=== PATIENT | male | born 1940 | race Caucasian/White ===

== ENCOUNTER 2019-03-31 08:48 | Day surgery (SDC) | payer BC ==
[2019-03-26 11:27] LABS: BASOPHILS % (AUTO) 0.5 % (0-1); EOSINOPHILS # (AUTO) 0.1 X10'3 (0-0.9); EOSINOPHILS % (AUTO) 1.2 % (0-6); HEMATOCRIT 47.8 % (42.0-52.0); HEMOGLOBIN 16.3 g/dl (14.0-17.9); LYMPHOCYTES # (AUTO) 1.3 X10'3 (1.1-4.8); LYMPHOCYTES % (AUTO) 19.8 % (21-51); MEAN CORPUSCULAR HEMOGLOBIN 31.2 PG (27.0-31.0); MEAN CORPUSCULAR HGB CONC 34.1 g/dL (33.0-36.5); MEAN CORPUSCULAR VOLUME 91.7 FL (78-98); MEAN PLATELET VOLUME 8.5 FL (7.4-10.4); MONOCYTES # (AUTO) 0.6 X10'3 (0-0.9); MONOCYTES % (AUTO) 8.8 % (2-12); NEUTROPHILS # (AUTO) 4.7 X10'3 (1.8-7.7); NEUTROPHILS % (AUTO) 69.7 % (42-75); PLATELET COUNT 299 X10'3 (140-440); RED BLOOD COUNT 5.21 X10'6 (4.70-6.10); RED CELL DISTRIBUTION WIDTH 13.6 % (11.5-14.5); WHITE BLOOD COUNT 6.7 X10'3 (4.5-11.0)
[2019-03-26 11:36] LABS: PARTIAL THROMBOPLASTIN TIME 26 SECONDS (22-32)
[2019-03-26 11:45] LABS: ALANINE AMINOTRANSFERASE 26 U/L (12-78); ALBUMIN 3.6 G/DL (3.4-5.0); ALBUMIN/GLOBULIN RATIO 0.9 (1.1-1.5); ALKALINE PHOSPHATASE 95 IU/L (46-116); ANION GAP 9 (8-16); ASPARTATE AMINO TRANSFERASE 15 U/L (10-37); BILIRUBIN,TOTAL 0.7 MG/DL (0.1-1.0); BLOOD UREA NITROGEN 9 MG/DL (7-18); BUN/CREATININE RATIO 10.7 (5.4-32.0); CALCIUM 8.9 MG/DL (8.5-10.1); CHLORIDE 101 MMOL/L (99-107); CREATININE 0.84 MG/DL (0.60-1.10); GLUCOSE 101 MG/DL (70-104); POTASSIUM 3.4 MMOL/L (3.5-5.1); SODIUM 141 MMOL/L (135-145); TOTAL CARBON DIOXIDE 30.9 MMOL/L (24-32); TOTAL PROTEIN 7.5 G/DL (6.4-8.2); eGFR 88 ML/MIN
[2019-03-31] VITALS (11 sets, daily range): BP systolic 118–149; BP diastolic 50–81
[~2019-03-31] VITALS: Ht 190.5 cm; Wt 77.5 kg
[2019-03-31] MEDS ORDERED: ATOR10TA87 PO (09:15)
[2019-03-31] MEDS ORDERED: ASPI-771 PO (09:15)
[2019-03-31] MEDS ORDERED: IBUP200C5 PO (09:15)
[2019-03-31] MEDS ORDERED: HYDR25TA4 PO (09:15)
[2019-03-31] MEDS ORDERED: LOSA25TA96 PO (09:15)
[2019-03-31] MEDS ORDERED: normal saline 1,000 ML IV SCH (09:20)
[2019-03-31] MEDS ORDERED: diphenhydrAMINE 25mg capsule PO PRN (09:20)
[2019-03-31] MEDS ORDERED: LORazepam 0.5 MG tablet PO PRN (09:20)
[2019-03-31] MEDS ORDERED: iohexol 350MG/ML 100ml bottle IV ONE (12:54)
[2019-03-31] MEDS ORDERED: LIDOcaine 1% (10mg/ml)w/preservative injection 20ml MDV ONE (12:54)
[2019-03-31] MEDS ORDERED: iohexol 350 MG/ML 50ML vial IV ONE (12:54)
[2019-03-31] MEDS ORDERED: fentaNYL/PF 50MCG/1 ML 2ML syringe ONE ×2 (13:18→13:36)
[2019-03-31] MEDS ORDERED: midazolam 2 mg/2 ml injection ONE (13:18)
[2019-03-31] MEDS ORDERED: ondansetron/PF 4mg/2ml inj IV PRN (14:20)
[2019-03-31] MEDS ORDERED: HYDROcodone/acetaminophen 5mg/325mg tablet PO PRN (14:20)
[2019-03-31] MEDS ORDERED: HYDROcodone/acetaminophen 10/325mg tab PO PRN (14:25)
[2019-03-31] MEDS ORDERED: OXAZEpam 15mg capsule PO PRN (14:25)
[2019-03-31] MEDS ORDERED: proCHLORperazine 10 MG/2 ml inj IV PRN (14:25)
[2019-03-31] MEDS ORDERED: nitroGLYCERIN 0.4mg SUBLingual tab SL PRN (14:40)
== END 2019-03-31 19:40 | disposition home or self-care (01) ==
LOC: SSTAY O 08:48
PROVIDERS: ATTEND Internal Medicine Cardiovascular Disease
DX: R94.39 Abnormal result of other cardiovascular function study (principal); I25.10 Atherosclerotic heart disease of native coronary artery without angina pectoris; I10 Essential (primary) hypertension; J44.9 Chronic obstructive pulmonary disease, unspecified; E78.5 Hyperlipidemia, unspecified; F17.210 Nicotine dependence, cigarettes, uncomplicated; Z79.899 Other long term (current) drug therapy; Z79.82 Long term (current) use of aspirin; Z79.01 Long term (current) use of anticoagulants
CPT/HCPCS: 36415; 71046; 71250; 80053; 85025; 85610; 85730; 93005; 93458; 99152; C1769; J1644; J2001; J2250; J3010; J7030; Q0163; Q9967; A4620; A6258; C1760

== ENCOUNTER 2019-04-15 05:35 | Inpatient (IN) | payer BC ==
[2019-04-14 16:53] LABS: BASOPHILS % (AUTO) 0.5 % (0-1); EOSINOPHILS # (AUTO) 0.2 X10'3 (0-0.9); EOSINOPHILS % (AUTO) 2.3 % (0-6); LYMPHOCYTES # (AUTO) 1.8 X10'3 (1.1-4.8); LYMPHOCYTES % (AUTO) 20.8 % (21-51); MEAN CORPUSCULAR HEMOGLOBIN 31.4 PG (27.0-31.0); MEAN CORPUSCULAR HGB CONC 33.9 g/dL (33.0-36.5); MEAN CORPUSCULAR VOLUME 92.4 FL (78-98); MEAN PLATELET VOLUME 8.9 FL (7.4-10.4); MONOCYTES # (AUTO) 0.7 X10'3 (0-0.9); MONOCYTES % (AUTO) 8.4 % (2-12); NEUTROPHILS # (AUTO) 5.7 X10'3 (1.8-7.7); PRE OP HEMATOCRIT 44.2 % (42.0-52.0); PRE OP PLATELET COUNT 290 X10'3 (140-440); RED BLOOD COUNT 4.78 X10'6 (4.70-6.10); RED CELL DISTRIBUTION WIDTH 13.7 % (11.5-14.5)
[2019-04-14 16:54] LABS: PRE OP PROTIME 10.1 SECONDS (9.0-12.0)
[2019-04-14 16:56] LABS: ALBUMIN 3.5 G/DL (3.4-5.0); ALBUMIN/GLOBULIN RATIO 0.9 (1.1-1.5); ALKALINE PHOSPHATASE 97 IU/L (46-116); BLOOD UREA NITROGEN 15 MG/DL (7-18); BUN/CREATININE RATIO 13.8 (5.4-32.0); CALCIUM 8.5 MG/DL (8.5-10.1); CHLORIDE 104 MMOL/L (99-107); CREATININE 1.09 MG/DL (0.60-1.10); PRE OP ALT 25 U/L (30-65); PRE OP ANION GAP 8 (8-16); PRE OP AST 10 U/L (10-37); PRE OP BILIRUB, TOTAL 0.5 MG/DL (0.0-1.0); PRE OP GLUCOSE 126 MG/DL (70-104); PRE OP SODIUM 142 MMOL/L (135-145); TOTAL CARBON DIOXIDE 30.1 MMOL/L (24-32); TOTAL PROTEIN 7.4 G/DL (6.4-8.2); eGFR 65 ML/MIN
[2019-04-14 16:58] LABS: CLARITY,URINE CLEAR (Clear); COLOR,URINE YELLOW (Yellow); GLUCOSE, URINE NEGATIVE (Neg); KETONES,URINE NEGATIVE (Neg); LEUKOCYTE ESTERASE ,URINE NEGATIVE (Neg); NITRITES, URINE NEGATIVE (Neg); OCCULT BLOOD,URINE NEGATIVE (Neg); PH,URINE 6.5 (4.8-8.0); PROTEIN,URINE NEGATIVE (Neg)
[2019-04-14 17:00] LABS: PRE OP POTASSIUM 3.2 MMOL/L (3.4-5.1)
[2019-04-14 17:01] LABS: UA COLLECTION TYPE VOIDED
[~2019-04-15] VITALS: Ht 190.5 cm; Wt 77.1 kg
[2019-04-15] VITALS (23 sets, daily range): BP systolic 84–150; BP diastolic 39–91
[~2019-04-15 05:35] MED LIST: ASPI-771 PO; ATOR10TA87 PO; HYDR25TA4 PO; LOSA25TA96 PO; albuterol 2.5 MG/3 ML nebule NEB ONE; albuterol 2.5 MG/3 ML nebule ONE; cefazolin/dext.iso 2gm/50ml 50 ML IV ONE; famotidine 20mg tablet PO ONE; ringers solution, lacted 1,000 ML IV SCH
[2019-04-15] MEDS ORDERED: LIDOcaine 1% (10mg/ml) 2ml vial ONE (06:00)
[2019-04-15 07:01] LABS: ISTAT CREATININE 0.9 mg/dL (0.8-1.3); ISTAT HGB 15.3 g/dl (14.0-18.0); ISTAT IONIZED CALCIUM 1.16 mmol/L (1.03-1.32); ISTAT K 3.8 mmol/L (3.5-5.1); POC BUN/CREATININE RATIO 15.6 (5.4-32.0)
[2019-04-15] MEDS ORDERED: fentaNYL /PF 50mcg/ml 5ml ampule ONE (07:33)
[2019-04-15] MEDS ORDERED: propofol inj 20 ML IV ONE (07:33)
[2019-04-15] MEDS ORDERED: midazolam 2 mg/2 ml injection ONE (07:33)
[2019-04-15] MEDS ORDERED: LIDOcaine 2% (20mg/ml) 5ml vial ONE (07:33)
[2019-04-15] MEDS ORDERED: BUPIVAcaine/PF 2.5 mg/ml (0.25%) 30ml vial ONE (07:37)
[2019-04-15] MEDS ORDERED: sevoflurane 250ml liquid IH ONE (07:40)
[2019-04-15] MEDS ORDERED: neostigmine methylsulfate 1 MG/ML 10ml vial ONE (07:40)
[2019-04-15] MEDS ORDERED: ondansetron/PF 4mg/2ml inj ONE (07:40)
[2019-04-15] MEDS ORDERED: glycopyrrolate 0.2mg/ml inj ONE (07:40)
[2019-04-15] MEDS ORDERED: ePHEDrine 50MG/ML INJ. ONE (10:17)
[2019-04-15] MEDS ORDERED: pancuronium br 1mg/ml inj IV ONE (10:17)
[2019-04-15] MEDS ORDERED: dexamethasone sod phosphate 4mg/ml inj. ONE (10:17)
[2019-04-15] MEDS ORDERED: rocuronium 10mg/ml inj IV ONE (10:18)
[2019-04-15] MEDS ORDERED: SODIUM CHLORIDE EPI SCH ×3 (10:40)
[2019-04-15] MEDS ORDERED: MORPHINE EPI SCH ×3 (10:40)
[2019-04-15] MEDS ORDERED: BUPIVACAINE EPI SCH ×3 (10:40)
[2019-04-15] MEDS ORDERED: [UNRECOGNIZED DRUG - OTHER] EPI SCH ×3 (10:40)
[2019-04-15] MEDS ORDERED: morphine/PF injection 8 MG, BUPIVAcaine 0.5% inj/PF 100 MG in normal saline 100ml IV so... EPI SCH (10:59)
[2019-04-15] MEDS: morphine/PF injection 8 MG, BUPIVAcaine 0.5% inj/PF 100 MG in normal saline 100ml IV so... EPI SCH ×3 (11:36→16:53)
[2019-04-15] MEDS ORDERED: naloxone 0.4 mg/ml inj IV PRN (11:40)
[2019-04-15] MEDS ORDERED: metoclopramide 5 mg/ml inj IV PRN (11:40)
[2019-04-15] MEDS ORDERED: ondansetron/PF 4mg/2ml inj IV PRN (11:40)
[2019-04-15] MEDS ORDERED: CADD PCA waste documentation MC PRN (11:40)
[2019-04-15] MEDS ORDERED: morphine 4 MG/ML inj SYRINge IV PRN (11:40)
[2019-04-15] MEDS ORDERED: magnesium hydroxide 30ml (MOM) UD suspension PO PRN (11:40)
[2019-04-15 12:41] LABS: ABG BASE EXCESS -2.2 mmol/L (-2.0-3.0); ABG OXYGEN SATURATION 99.1 % (95-98); ABG PCO2 (T) 46.8 mmHg (35.0-45.0); ABG PH (T) 7.328 (7.350-7.450); ABG PO2 (T) 186.6 mmHg (83-108); FCOHb 0.6 % (0.5-1.5); FLOW 10 L/min; FMetHb 0.1 % (0.3-1.12); FO2Hb 98.4 % (94-100); RESPIRATORY RATE (OBSERVED) 18 b/min; TOTAL HEMOGLOBIN 13.6 G/dl (14.0-17.9)
--- NOTE | 2019-04-15 12:50 | NUR ---
Report called to receiving nurse. Transferred via BED Belongings . Special Issues communicated to receiving nurse.AWAKE AND ORIENTED. VITALS STABLE. DRESSING DI. STATES PAIN IMPROVING. TO CICU RM 2009 AT THIS TIME.
[2019-04-15] MEDS ORDERED: ceFAZolin inj. 1,000 MG in dextrose 5%-water 50ml 50 ML IV SCH (16:00)
[2019-04-15] MEDS ORDERED: DEXTROSE IV SCH (16:00)
[2019-04-15] MEDS ORDERED: [UNRECOGNIZED DRUG - OTHER] IV SCH (16:00)
[2019-04-15] MEDS ORDERED: CEFAZOLIN IV SCH (16:00)
[2019-04-15] MEDS: ceFAZolin 1GM/D5W- ADD-VANTAGE 50 ML IV SCH (17:13)
[2019-04-15] MEDS: potassium Cl 20mEq in D5-NS 1,000 ML IV SCH (20:52)
[2019-04-15] MEDS: gabapentin 300mg capsule PO SCH (20:53)
[2019-04-16] VITALS (23 sets, daily range): BP systolic 77–133; BP diastolic 45–65
[2019-04-16] MEDS: potassium Cl 20mEq in D5-NS 1,000 ML IV SCH ×2 (00:06→10:11)
[2019-04-16] MEDS: ceFAZolin 1GM/D5W- ADD-VANTAGE 50 ML IV SCH (00:41)
[2019-04-16] MEDS: morphine/PF injection 8 MG, BUPIVAcaine 0.5% inj/PF 100 MG in normal saline 100ml IV so... EPI SCH (00:45)
[2019-04-16 04:51] LABS: BASOPHILS % (AUTO) 0.1 % (0-1); EOSINOPHILS % (AUTO) 0.1 % (0-6); HEMATOCRIT 37.1 % (42.0-52.0); HEMOGLOBIN 12.7 g/dl (14.0-17.9); LYMPHOCYTES # (AUTO) 1.1 X10'3 (1.1-4.8); MEAN CORPUSCULAR HEMOGLOBIN 31.6 PG (27.0-31.0); MEAN CORPUSCULAR HGB CONC 34.2 g/dL (33.0-36.5); MEAN CORPUSCULAR VOLUME 92.3 FL (78-98); MONOCYTES # (AUTO) 1.1 X10'3 (0-0.9); MONOCYTES % (AUTO) 10.2 % (2-12); NEUTROPHILS # (AUTO) 8.5 X10'3 (1.8-7.7); NEUTROPHILS % (AUTO) 79.6 % (42-75); PLATELET COUNT 231 X10'3 (140-440); RED BLOOD COUNT 4.02 X10'6 (4.70-6.10); RED CELL DISTRIBUTION WIDTH 13.6 % (11.5-14.5); WHITE BLOOD COUNT 10.6 X10'3 (4.5-11.0)
[2019-04-16 05:08] LABS: ALANINE AMINOTRANSFERASE 19 U/L (12-78); ALBUMIN 2.7 G/DL (3.4-5.0); ALBUMIN/GLOBULIN RATIO 0.8 (1.1-1.5); ALKALINE PHOSPHATASE 67 IU/L (46-116); ANION GAP 8 (8-16); ASPARTATE AMINO TRANSFERASE 19 U/L (10-37); BILIRUBIN,TOTAL 0.7 MG/DL (0.1-1.0); BLOOD UREA NITROGEN 10 MG/DL (7-18); BUN/CREATININE RATIO 12.3 (5.4-32.0); CALCIUM 7.8 MG/DL (8.5-10.1); CHLORIDE 105 MMOL/L (99-107); CREATININE 0.81 MG/DL (0.60-1.10); GLUCOSE 122 MG/DL (70-104); MAGNESIUM 1.9 MG/DL (1.5-2.4); SODIUM 137 MMOL/L (135-145); TOTAL CARBON DIOXIDE 24.3 MMOL/L (24-32); TOTAL PROTEIN 5.9 G/DL (6.4-8.2); eGFR > 90 ML/MIN
[2019-04-16] MEDS: gabapentin 300mg capsule PO SCH ×2 (07:15→20:00)
[2019-04-16] MEDS: nicotine 21mg patch - 24 hr TD SCH (08:33)
[2019-04-16] MEDS ORDERED: morphine/PF injection 8 MG in normal saline 100ml IV soln 92 ML EPI SCH (11:00)
--- NOTE | 2019-04-16 11:09 | NUR ---
aware of air-leak and crepitus. No new orders. Chest tube in to cont suction. Will continue monitoring. Addendum: 04/16/19 at 1111 by Jay Jay Diop RN Amended: Links added.
[2019-04-16] MEDS: morphine/PF injection 8 MG in normal saline 100ml IV soln 100 ML EPI SCH (12:05)
[2019-04-16] MEDS: furosemide 20 MG/2 ML vial IV SCH ×3 (12:16→21:00)
--- NOTE | 2019-04-16 13:04 | NUR ---
at bedside, he saw the chest tubes, the air-leak and the crepitus, he placed xeroform dressing around the chest tubes and coverred with gauze and tape. Addendum: 04/16/19 at 1306 by Jay Jay Diop RN Amended: Links added.
[2019-04-16] MEDS ORDERED: magnesium 4gm in 100ml NS 100 ML IV ONE (14:25)
--- NOTE | 2019-04-16 14:32 | NUR ---
Pt's heart rate in 110-140s, STAT EKG done. Irregular rythym, there is P waves for most of the QRS, some QRS have no P wave. Call placed to , order received for 4GM magnesium. Also noted R-chest rising slightly higher than L-chest, STAT chest x-ray shows L-pneumothorax. Call placed to , now new order but to continue with suction. Chest tubes to -20 wall suction. Orders noted, Charge nurse informed of changes and orders.
[2019-04-16] MEDS ORDERED: amiodarone 150mg/dext, iso-os 100 ML IV ONE (15:50)
[2019-04-16] MEDS: amiodarone/D5 360MG/200ML BAG 200 ML IV SCH (16:10)
[2019-04-16] MEDS: magnesium oxide 400mg tablet PO SCH (19:40)
[2019-04-17] VITALS (23 sets, daily range): BP systolic 86–145; BP diastolic 54–73
[2019-04-17] MEDS: amiodarone/D5 360MG/200ML BAG 200 ML IV SCH ×5 (01:14→20:06)
[2019-04-17 02:23] LABS: BASOPHILS # (AUTO) 0.1 X10'3 (0-0.2); BASOPHILS % (AUTO) 0.8 % (0-1); EOSINOPHILS # (AUTO) 0.1 X10'3 (0-0.9); EOSINOPHILS % (AUTO) 0.6 % (0-6); HEMOGLOBIN 11.8 g/dl (14.0-17.9); LYMPHOCYTES # (AUTO) 1.6 X10'3 (1.1-4.8); LYMPHOCYTES % (AUTO) 13.5 % (21-51); MEAN CORPUSCULAR HEMOGLOBIN 31.7 PG (27.0-31.0); MEAN CORPUSCULAR HGB CONC 34.6 g/dL (33.0-36.5); MEAN CORPUSCULAR VOLUME 91.4 FL (78-98); MEAN PLATELET VOLUME 8.6 FL (7.4-10.4); MONOCYTES # (AUTO) 1.1 X10'3 (0-0.9); MONOCYTES % (AUTO) 8.8 % (2-12); NEUTROPHILS # (AUTO) 9.1 X10'3 (1.8-7.7); NEUTROPHILS % (AUTO) 76.3 % (42-75); PLATELET COUNT 187 X10'3 (140-440); RED BLOOD COUNT 3.72 X10'6 (4.70-6.10); RED CELL DISTRIBUTION WIDTH 13.1 % (11.5-14.5); WHITE BLOOD COUNT 11.9 X10'3 (4.5-11.0)
[2019-04-17] MEDS: NALOXONE IV PRN ×2 (02:27→23:24)
[2019-04-17] MEDS: NORMAL SALINE IV PRN ×2 (02:27→23:24)
[2019-04-17 02:38] LABS: ALANINE AMINOTRANSFERASE 16 U/L (12-78); ALBUMIN 2.4 G/DL (3.4-5.0); ALBUMIN/GLOBULIN RATIO 0.8 (1.1-1.5); ALKALINE PHOSPHATASE 57 IU/L (46-116); ANION GAP 5 (8-16); ASPARTATE AMINO TRANSFERASE 17 U/L (10-37); BILIRUBIN,TOTAL 0.8 MG/DL (0.1-1.0); BLOOD UREA NITROGEN 12 MG/DL (7-18); BUN/CREATININE RATIO 13.6 (5.4-32.0); CALCIUM 7.2 MG/DL (8.5-10.1); CHLORIDE 101 MMOL/L (99-107); CREATININE 0.88 MG/DL (0.60-1.10); GLUCOSE 113 MG/DL (70-104); MAGNESIUM 2.6 MG/DL (1.5-2.4); POTASSIUM 3.5 MMOL/L (3.5-5.1); SODIUM 135 MMOL/L (135-145); TOTAL CARBON DIOXIDE 28.6 MMOL/L (24-32); TOTAL PROTEIN 5.6 G/DL (6.4-8.2); eGFR 83 ML/MIN
[2019-04-17] MEDS: morphine/PF injection 8 MG in normal saline 100ml IV soln 100 ML EPI SCH (05:00)
[2019-04-17] MEDS: gabapentin 300mg capsule PO SCH (08:00)
[2019-04-17] MEDS ORDERED: atorvastatin 10mg tablet PO SCH (08:00)
[2019-04-17] MEDS ORDERED: HYDROchlorothiazide 25mg tablet PO SCH (08:00)
[2019-04-17] MEDS ORDERED: losartan 25mg tablet PO SCH (08:00)
[2019-04-17] MEDS: nicotine 21mg patch - 24 hr TD SCH (08:51)
[2019-04-17] MEDS: magnesium oxide 400mg tablet PO SCH ×2 (08:52→19:58)
[2019-04-17] MEDS: metoprolol tartrate 25mg tablet PO SCH ×2 (08:52→19:59)
[2019-04-17] MEDS ORDERED: NORMAL SALINE IV SCH (10:55)
[2019-04-17] MEDS ORDERED: MORPHINE SULFATE IV SCH (10:55)
[2019-04-17] MEDS ORDERED: amiodarone/D5 360MG/200ML BAG 200 ML IV SCH (15:50)
--- NOTE | 2019-04-17 17:19 | NUR ---
1550- Pt assisted to BSC, chair next to pt with call light in reach. Pt instructed to push button when done or if he needed assistance. RnN went to assist another pt. Sari RN came and informed RN that pt in rm 2009 was on the floor. Pt found sitiing on the floor all tangled in IV lines, soares cath and CT. Ct intact, epidural intact, soares intact, CL intact, left PIV pulled out. Pt assisted to standing position and placed back in bed. Lines were straightened out and pt was assessed. Pt states he tried to get to the chair but wasn't strong enough and slid to the floor. Pt denies any injuries. it security administrator Anne de la torre.
--- NOTE | 2019-04-17 18:18 | NUR ---
Problems reprioritized. Patient report given, questions answered & plan of care reviewed with LEONIDES ASHLEY.
[2019-04-17] MEDS: albuterol 2.5 MG/3 ML nebule NEB PRN (21:37)
[2019-04-18] VITALS (20 sets, daily range): BP systolic 105–127; BP diastolic 59–86
[2019-04-18] MEDS: amiodarone/D5 360MG/200ML BAG 200 ML IV SCH ×4 (02:43→21:58)
[2019-04-18 05:20] LABS: BASOPHILS % (AUTO) 0.4 % (0-1); EOSINOPHILS % (AUTO) 0.2 % (0-6); HEMOGLOBIN 11.4 g/dl (14.0-17.9); LYMPHOCYTES # (AUTO) 0.8 X10'3 (1.1-4.8); LYMPHOCYTES % (AUTO) 5.6 % (21-51); MEAN CORPUSCULAR HEMOGLOBIN 31.4 PG (27.0-31.0); MEAN CORPUSCULAR HGB CONC 34.6 g/dL (33.0-36.5); MEAN CORPUSCULAR VOLUME 90.9 FL (78-98); MONOCYTES # (AUTO) 1.1 X10'3 (0-0.9); MONOCYTES % (AUTO) 8.6 % (2-12); NEUTROPHILS # (AUTO) 11.3 X10'3 (1.8-7.7); NEUTROPHILS % (AUTO) 85.2 % (42-75); PLATELET COUNT 190 X10'3 (140-440); RED BLOOD COUNT 3.63 X10'6 (4.70-6.10); RED CELL DISTRIBUTION WIDTH 13.4 % (11.5-14.5); WHITE BLOOD COUNT 13.3 X10'3 (4.5-11.0)
[2019-04-18 05:48] LABS: ALANINE AMINOTRANSFERASE 16 U/L (12-78); ALBUMIN 2.2 G/DL (3.4-5.0); ALBUMIN/GLOBULIN RATIO 0.6 (1.1-1.5); ALKALINE PHOSPHATASE 55 IU/L (46-116); ANION GAP 5 (8-16); ASPARTATE AMINO TRANSFERASE 20 U/L (10-37); BILIRUBIN,TOTAL 1.2 MG/DL (0.1-1.0); BLOOD UREA NITROGEN 7 MG/DL (7-18); BUN/CREATININE RATIO 9.1 (5.4-32.0); CALCIUM 7.5 MG/DL (8.5-10.1); CHLORIDE 97 MMOL/L (99-107); CREATININE 0.77 MG/DL (0.60-1.10); GLUCOSE 113 MG/DL (70-104); MAGNESIUM 2.2 MG/DL (1.5-2.4); POTASSIUM 3.4 MMOL/L (3.5-5.1); SODIUM 130 MMOL/L (135-145); TOTAL CARBON DIOXIDE 28.2 MMOL/L (24-32); TOTAL PROTEIN 5.8 G/DL (6.4-8.2); eGFR > 90 ML/MIN
[2019-04-18] MEDS ORDERED: morphine/PF injection 8 MG in normal saline 100ml IV soln 92 ML IV SCH (05:49)
[2019-04-18] MEDS: morphine sulfate /PF inj. 8 MG in normal saline 100ml IV soln 84 ML IV SCH ×2 (06:34→18:51)
--- NOTE | 2019-04-18 06:52 | NUR ---
Problems reprioritized. Patient report given, questions answered & plan of care reviewed with Stacie ASHLEY.
[2019-04-18] MEDS: magnesium oxide 400mg tablet PO SCH ×2 (08:35→21:57)
[2019-04-18] MEDS: metoprolol tartrate 25mg tablet PO SCH ×2 (08:35→21:57)
[2019-04-18] MEDS: nicotine 21mg patch - 24 hr TD SCH (08:35)
[2019-04-18] MEDS: potassium Cl 20mEq/100mL bag 100 ML IV PRN ×2 (16:50→18:50)
--- NOTE | 2019-04-18 18:30 | NUR ---
I have received report and assumed care of pt. pt resting in bed rise and fall of chest cavity equile and symmetrical. chest tube in place with a small known air leak, small amount of crepitus noted on the left lateral chest area, no trach deviation noted, pt able to speak in complete sentences without difficulties. Pt is noted to have moments of confusion however he is easily reoriented.
[2019-04-18] MEDS: NALOXONE IV PRN (18:50)
[2019-04-18] MEDS: NORMAL SALINE IV PRN (18:50)
--- NOTE | 2019-04-18 19:30 | NUR ---
family at bedside no changes in condition noted, plan of care reviewed
--- NOTE | 2019-04-18 21:35 | NUR ---
hs cares complete pt tolerated well.
[2019-04-19] VITALS (21 sets, daily range): BP systolic 94–128; BP diastolic 53–80
--- NOTE | 2019-04-19 01:33 | NUR ---
pt placed on 2 liters n/c O2 due to oxygen saturation dropping down to 86 while sleeping, oxygen sats increased to greater then 93% after oxygen placed
[2019-04-19] MEDS: amiodarone/D5 360MG/200ML BAG 200 ML IV SCH ×4 (03:03→20:21)
[2019-04-19 03:11] LABS: BASOPHILS # (AUTO) 0.1 X10'3 (0-0.2); BASOPHILS % (AUTO) 0.6 % (0-1); EOSINOPHILS # (AUTO) 0.1 X10'3 (0-0.9); EOSINOPHILS % (AUTO) 1.1 % (0-6); HEMATOCRIT 32.3 % (42.0-52.0); HEMOGLOBIN 11.2 g/dl (14.0-17.9); LYMPHOCYTES % (AUTO) 9.2 % (21-51); MEAN CORPUSCULAR HEMOGLOBIN 31.9 PG (27.0-31.0); MEAN CORPUSCULAR HGB CONC 34.7 g/dL (33.0-36.5); MEAN CORPUSCULAR VOLUME 92.1 FL (78-98); MEAN PLATELET VOLUME 9.3 FL (7.4-10.4); MONOCYTES # (AUTO) 1.2 X10'3 (0-0.9); NEUTROPHILS # (AUTO) 8.4 X10'3 (1.8-7.7); NEUTROPHILS % (AUTO) 78.1 % (42-75); PLATELET COUNT 209 X10'3 (140-440); RED CELL DISTRIBUTION WIDTH 13.4 % (11.5-14.5); WHITE BLOOD COUNT 10.8 X10'3 (4.5-11.0)
[2019-04-19 03:18] LABS: ALANINE AMINOTRANSFERASE 17 U/L (12-78); ALBUMIN 1.9 G/DL (3.4-5.0); ALBUMIN/GLOBULIN RATIO 0.5 (1.1-1.5); ALKALINE PHOSPHATASE 56 IU/L (46-116); ANION GAP 6 (8-16); ASPARTATE AMINO TRANSFERASE 20 U/L (10-37); BLOOD UREA NITROGEN 7 MG/DL (7-18); BUN/CREATININE RATIO 9.7 (5.4-32.0); CALCIUM 7.6 MG/DL (8.5-10.1); CHLORIDE 97 MMOL/L (99-107); CREATININE 0.72 MG/DL (0.60-1.10); GLUCOSE 107 MG/DL (70-104); MAGNESIUM 2.2 MG/DL (1.5-2.4); POTASSIUM 3.9 MMOL/L (3.5-5.1); SODIUM 129 MMOL/L (135-145); TOTAL CARBON DIOXIDE 25.6 MMOL/L (24-32); TOTAL PROTEIN 5.7 G/DL (6.4-8.2); eGFR > 90 ML/MIN
--- NOTE | 2019-04-19 06:09 | NUR ---
report given to rec rn plan of care reviewed
[2019-04-19] MEDS: ondansetron/PF 4mg/2ml inj IV PRN (08:20)
[2019-04-19] MEDS: metoprolol tartrate 25mg tablet PO SCH (08:23)
[2019-04-19] MEDS: magnesium oxide 400mg tablet PO SCH ×2 (08:23→20:39)
[2019-04-19] MEDS: nicotine 21mg patch - 24 hr TD SCH (08:23)
[2019-04-19] MEDS ORDERED: bisacodyl 10mg suppository rectal RC PRN (11:35)
[2019-04-19] MEDS: docusate sod 100mg capsule PO SCH ×2 (11:47→20:39)
[2019-04-19] MEDS: morphine/PF injection 8 MG in normal saline 100ml IV soln 92 ML IV SCH (14:23)
--- NOTE | 2019-04-19 17:33 | NUR ---
No rate for Duromorph listed on emar, RX called to verify that the concentration and of 6mls/hr is the same as last bags. Pharmacy was able to verify that is correct
--- NOTE | 2019-04-19 18:35 | NUR ---
I have received report and assumed care of the pt. Pt resting in bed rise and fall of chest cavity equile and symmetrical, Pts family at bedside, pt eating dinner brought in from family, pt ate 2 cod filets, small fries, and coleslaw. pt denies needs at this time.
--- NOTE | 2019-04-19 18:45 | NUR ---
Dr. Eagle rounded on the pt, new orders received to call him if the pt is back in [facility].
--- NOTE | 2019-04-19 19:30 | NUR ---
Dr. Bar at bedside,
[2019-04-19] MEDS: amiodarone 200mg tablet PO SCH (20:39)
[2019-04-19] MEDS: albuterol 2.5 MG/3 ML nebule NEB PRN (20:46)
--- NOTE | 2019-04-19 21:57 | NUR ---
hs cares complete pt tolerated well,
[2019-04-19] MEDS ORDERED: metoprolol succinate 25mg (24-HOUR) SR. Tablet PO ONE (23:25)
[2019-04-20] VITALS (22 sets, daily range): BP systolic 106–147; BP diastolic 58–78
[2019-04-20] MEDS: morphine/PF injection 8 MG in normal saline 100ml IV soln 92 ML IV SCH ×2 (00:20→07:07)
[2019-04-20] MEDS: amiodarone/D5 360MG/200ML BAG 200 ML IV SCH ×3 (02:03→12:40)
[2019-04-20 02:51] LABS: BASOPHILS % (AUTO) 0.2 % (0-1); EOSINOPHILS # (AUTO) 0.1 X10'3 (0-0.9); HEMATOCRIT 32.9 % (42.0-52.0); HEMOGLOBIN 11.4 g/dl (14.0-17.9); LYMPHOCYTES # (AUTO) 0.8 X10'3 (1.1-4.8); LYMPHOCYTES % (AUTO) 6.4 % (21-51); MEAN CORPUSCULAR HEMOGLOBIN 31.6 PG (27.0-31.0); MEAN CORPUSCULAR HGB CONC 34.5 g/dL (33.0-36.5); MEAN CORPUSCULAR VOLUME 91.5 FL (78-98); MEAN PLATELET VOLUME 8.9 FL (7.4-10.4); MONOCYTES # (AUTO) 1.2 X10'3 (0-0.9); MONOCYTES % (AUTO) 9.8 % (2-12); NEUTROPHILS # (AUTO) 10.2 X10'3 (1.8-7.7); NEUTROPHILS % (AUTO) 82.6 % (42-75); PLATELET COUNT 229 X10'3 (140-440); RED CELL DISTRIBUTION WIDTH 13.2 % (11.5-14.5); WHITE BLOOD COUNT 12.4 X10'3 (4.5-11.0)
[2019-04-20 03:01] LABS: ALANINE AMINOTRANSFERASE 23 U/L (12-78); ALBUMIN 1.8 G/DL (3.4-5.0); ALBUMIN/GLOBULIN RATIO 0.5 (1.1-1.5); ALKALINE PHOSPHATASE 61 IU/L (46-116); ANION GAP 7 (8-16); ASPARTATE AMINO TRANSFERASE 21 U/L (10-37); BILIRUBIN,TOTAL 0.9 MG/DL (0.1-1.0); BLOOD UREA NITROGEN 7 MG/DL (7-18); BUN/CREATININE RATIO 9.2 (5.4-32.0); CALCIUM 7.3 MG/DL (8.5-10.1); CHLORIDE 97 MMOL/L (99-107); CREATININE 0.76 MG/DL (0.60-1.10); GLUCOSE 117 MG/DL (70-104); POTASSIUM 3.7 MMOL/L (3.5-5.1); SODIUM 131 MMOL/L (135-145); TOTAL CARBON DIOXIDE 27.1 MMOL/L (24-32); TOTAL PROTEIN 5.7 G/DL (6.4-8.2); eGFR > 90 ML/MIN
[2019-04-20 03:40] LABS: ABG BASE EXCESS 0.5 mmol/L (-2.0-3.0); ABG HCO3 24.1 mmol/L (22.0-26.0); ABG OXYGEN SATURATION 89.2 % (95-98); ABG PCO2 (T) 36.8 mmHg (35.0-45.0); ABG PH (T) 7.438 (7.350-7.450); FCOHb 0.6 % (0.5-1.5); FLOW 10 L/min; FMetHb 0.3 % (0.3-1.12); FO2Hb 88.4 % (94-100); PATIENT TEMPERATURE 37.8; RESPIRATORY RATE (OBSERVED) 20 b/min; TOTAL HEMOGLOBIN 12.9 G/dl (14.0-17.9)
--- NOTE | 2019-04-20 03:58 | NUR ---
pts sat dropped to 80 on 2 liters, pt unable to bring oxygen saturation up, even with cough and deep breathing, pt placed on 10 liters via simple mask, abg obtained and chest xray. results called to Dr. Eagle new orders received respitory treatment and medineb with Mucomyst
[2019-04-20] MEDS ORDERED: acetylcysteine 200 MG/ml 4ml vial INH SCH ×2 (04:00)
[2019-04-20] MEDS: acetylcysteine 200 MG/ml 4ml vial INH SCH ×6 (04:07→23:53)
[2019-04-20] MEDS: albuterol 2.5 MG/3 ML nebule IH SCH ×6 (04:07→23:53)
--- NOTE | 2019-04-20 06:12 | NUR ---
report given to rec rn plan of care reviewed
--- NOTE | 2019-04-20 07:21 | NUR ---
medi neb with 600mg mucomyist Addendum: 04/20/19 at 0732 by Milena Moran RT Amended: Links added.
[2019-04-20] MEDS: linezolid 600mg/300ml PREMIX 300 ML IV SCH (09:02)
[2019-04-20] MEDS ORDERED: furosemide 40mg/4ml inj IV ONE (09:55)
[2019-04-20] MEDS: HYDROcodone/acetaminophen 10/325mg tab PO PRN (09:58)
--- NOTE | 2019-04-20 10:14 | NUR ---
Epidural removed with anesthesia Dr Pena present for removal, duramorph and narcan gtt turned off. Pt tolerated well, no bleeding or drainage at site. Black cath tip present on removal and intact. Bandaid placed over site.
--- NOTE | 2019-04-20 11:01 | NUR ---
600mg mucomyist with medi neb Addendum: 04/20/19 at 1137 by Milena Moran RT Amended: Links added.
--- NOTE | 2019-04-20 11:02 | NUR ---
600mg of mucomyist per medi neb Addendum: 04/20/19 at 1104 by Milena Moran RT Amended: Links added.
[2019-04-20] MEDS: nicotine 21mg patch - 24 hr TD SCH (11:35)
[2019-04-20] MEDS: amiodarone 200mg tablet PO SCH ×2 (11:35→20:37)
[2019-04-20] MEDS: docusate sod 100mg capsule PO SCH ×2 (11:35→20:37)
[2019-04-20] MEDS: magnesium oxide 400mg tablet PO SCH ×2 (11:35→20:37)
--- NOTE | 2019-04-20 12:08 | NUR ---
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 PO intake pending documentation, spoke with bedside RN who reports patient PO Intake is about 25%. Met with patient and his daughter at bedside, patient reports just the other day he was eating everything but has declined d/t not preferring his meals. In view of patient's poor intake, age, and condition he may benefit from diet liberalization to regular. This was discussed with bedside RN, she states she will discuss with Data Clerk. Patient is drinking Orgain protein drinks brought in from home, is interested in trying Ensure Enlive with breakfast and lunch to meet nutrition and protein needs s/p surgery, this was also discussed with bedside RN who added it to patient's meals. D/w Dietary regarding the Ensure. Patient is constipated, last BM 04/15, receiving colace BID starting yesterday, would also like prunes with lunch, d/w dietary. Pt and daughter given written low tyramine education handout with verbal review in view of patient receiving zyvox. Will continue to follow. Recommend: 1. patient may benefit from diet liberalization in view of suboptimal PO Intake, age, post op needs 2. Send Ensure Enlive with breakfast and dinner in view of suboptimal PO intake 3. Continue routine bowel care 4. Trial prunes with lunch today 5. weight per rx Addendum: 04/20/19 at [address] Amended: Links added.
[2019-04-20] MEDS: lactose-reduced food (Ensure Enlive) - 237ml bottle PO SCH (12:30)
[2019-04-20 13:18] LABS: CLARITY,URINE SLIGHTLY CLOUDY (Clear); GLUCOSE, URINE NEGATIVE (Neg); KETONES,URINE NEGATIVE (Neg); LEUKOCYTE ESTERASE ,URINE NEGATIVE (Neg); NITRITES, URINE NEGATIVE (Neg); OCCULT BLOOD,URINE LARGE (Neg); PH,URINE 5.5 (4.8-8.0); PROTEIN,URINE 30 mg/dl (Neg)
[2019-04-20 13:21] LABS: UA COLLECTION TYPE FOLEY CATH
[2019-04-20 13:23] LABS: COLOR,URINE AMBER (Yellow)
[2019-04-20 13:27] LABS: BACTERIA,URINE FEW /HPF (Neg); MUCUS STRANDS MANY /LPF (Neg); SQUAMOUS EPITHELIAL CELL,UR FEW /LPF (FEW)
[2019-04-20 13:28] LABS: COARSE GRANULAR CAST 0-3 /LPF (NEGATIVE); FINE GRANULAR CAST 0-3 /LPF (NEGATIVE)
--- NOTE | 2019-04-20 15:19 | NUR ---
600mg of mucomyist via medineb Addendum: 04/20/19 at 1530 by Milena Moran RT Amended: Links added.
[2019-04-20] MEDS ORDERED: piperacillin/tazo 4.5gm/100ml 100 ML IV SCH (16:00)
[2019-04-20] MEDS: cefepime 2g/NS 100ml ADVANTAGE 100 ML IV SCH (16:15)
--- NOTE | 2019-04-20 18:30 | NUR ---
assumed care from Stacie RN no questions or concerns after assuming care
[2019-04-20] MEDS ORDERED: metoprolol succinate 25mg (24-HOUR) SR. Tablet PO SCH (19:30)
[2019-04-20] MEDS: lactobacillus rhamnosus 10,000 MMU CELLS/CAPSULE PO SCH (20:37)
[2019-04-20] MEDS: metoprolol succinate 25mg (24-HOUR) SR. Tablet PO SCH (20:37)
--- NOTE | 2019-04-20 21:23 | NUR ---
patient in bed eys closed rr even un labored no observable s/s of acute stress at this time
--- NOTE | 2019-04-20 22:35 | NUR ---
patient in bed supine with eyes open using is and flutter valve appropriately, patient also using yankuer suction to help expell secretions it is observably working, patient denies pain aox4 with rr even un labored no observable s/s of acute stress at this time
[2019-04-21] VITALS (24 sets, daily range): BP systolic 100–137; BP diastolic 0–80
--- NOTE | 2019-04-21 00:30 | NUR ---
patient in bed eyes closed rr even un labored no observable s/s of acute stress at this time
[2019-04-21] MEDS: cefepime 2g/NS 100ml ADVANTAGE 100 ML IV SCH ×3 (00:49→16:24)
[2019-04-21 03:08] LABS: BASOPHILS % (AUTO) 0.3 % (0-1); EOSINOPHILS # (AUTO) 0.2 X10'3 (0-0.9); EOSINOPHILS % (AUTO) 2.1 % (0-6); HEMATOCRIT 31.8 % (42.0-52.0); HEMOGLOBIN 10.9 g/dl (14.0-17.9); LYMPHOCYTES # (AUTO) 0.7 X10'3 (1.1-4.8); LYMPHOCYTES % (AUTO) 5.9 % (21-51); MEAN CORPUSCULAR HEMOGLOBIN 31.3 PG (27.0-31.0); MEAN CORPUSCULAR HGB CONC 34.2 g/dL (33.0-36.5); MEAN CORPUSCULAR VOLUME 91.5 FL (78-98); MEAN PLATELET VOLUME 8.2 FL (7.4-10.4); MONOCYTES # (AUTO) 1.1 X10'3 (0-0.9); MONOCYTES % (AUTO) 9.7 % (2-12); NEUTROPHILS # (AUTO) 9.1 X10'3 (1.8-7.7); PLATELET COUNT 229 X10'3 (140-440); RED BLOOD COUNT 3.47 X10'6 (4.70-6.10); RED CELL DISTRIBUTION WIDTH 13.5 % (11.5-14.5)
[2019-04-21 03:20] LABS: ALANINE AMINOTRANSFERASE 19 U/L (12-78); ALBUMIN 1.6 G/DL (3.4-5.0); ALBUMIN/GLOBULIN RATIO 0.4 (1.1-1.5); ALKALINE PHOSPHATASE 57 IU/L (46-116); ANION GAP 6 (8-16); ASPARTATE AMINO TRANSFERASE 15 U/L (10-37); BLOOD UREA NITROGEN 9 MG/DL (7-18); BUN/CREATININE RATIO 11.5 (5.4-32.0); CALCIUM 7.6 MG/DL (8.5-10.1); CHLORIDE 96 MMOL/L (99-107); CREATININE 0.78 MG/DL (0.60-1.10); GLUCOSE 122 MG/DL (70-104); MAGNESIUM 2.1 MG/DL (1.5-2.4); PHOSPHORUS 2.2 MG/DL (2.3-4.5); POTASSIUM 3.5 MMOL/L (3.5-5.1); SODIUM 130 MMOL/L (135-145); TOTAL CARBON DIOXIDE 28.5 MMOL/L (24-32); TOTAL PROTEIN 5.5 G/DL (6.4-8.2); eGFR > 90 ML/MIN
[2019-04-21] MEDS: albuterol 2.5 MG/3 ML nebule IH SCH ×6 (03:25→23:08)
[2019-04-21] MEDS: acetylcysteine 200 MG/ml 4ml vial INH SCH ×6 (03:25→23:08)
--- NOTE | 2019-04-21 03:35 | NUR ---
RT in room giving mucamist through meta-neb no observable s/s of acute stress or labored rr at this time will continue to observe
[2019-04-21] MEDS: HYDROcodone/acetaminophen 10/325mg tab PO PRN ×2 (03:45→20:11)
[2019-04-21] MEDS: morphine 4 MG/ML inj SYRINge IV PRN ×2 (05:46→16:25)
--- NOTE | 2019-04-21 06:25 | NUR ---
SBAR TO DEJAN RN NO QUESTIONS OR CONCERNS AFTER ASSUMING CARE
[2019-04-21] MEDS: lactobacillus rhamnosus 10,000 MMU CELLS/CAPSULE PO SCH ×2 (07:26→20:12)
[2019-04-21] MEDS: amiodarone 200mg tablet PO SCH ×2 (07:26→20:12)
[2019-04-21] MEDS: magnesium oxide 400mg tablet PO SCH ×2 (07:26→20:12)
[2019-04-21] MEDS: docusate sod 100mg capsule PO SCH ×2 (07:26→20:12)
[2019-04-21] MEDS: linezolid 600mg/300ml PREMIX 300 ML IV SCH ×2 (07:26→20:13)
[2019-04-21] MEDS: nicotine 21mg patch - 24 hr TD SCH (07:28)
[2019-04-21] MEDS ORDERED: ketorolac tromethamine 15mg/ml inj. IM ONE (08:20)
[2019-04-21] MEDS ORDERED: enoxaparin 100mg/ml syringe SUBCUT ONE (08:20)
[2019-04-21] MEDS: lactose-reduced food (Ensure Enlive) - 237ml bottle PO SCH ×2 (08:22→12:30)
[2019-04-21] MEDS: enoxaparin 80mg/0.8ml syringe SUBCUT SCH ×2 (08:32→20:13)
--- NOTE | 2019-04-21 10:25 | NUR ---
Pt working with PT
--- NOTE | 2019-04-21 11:28 | NUR ---
meta neb given with 600mg mucomyist Addendum: 04/21/19 at 1135 by Milena Moran RT Amended: Links added.
[2019-04-21] MEDS ORDERED: amiodarone/D5 360MG/200ML BAG 200 ML IV SCH ×2 (14:35)
--- NOTE | 2019-04-21 15:44 | NUR ---
Physical Therapy working with patient
--- NOTE | 2019-04-21 18:15 | NUR ---
Patient in room CICU 2009. I have received report from Art RN and had the opportunity to ask questions and assume patient care. Patient is having dinner and visiting with his daughters. Vitals are stable, wound dressing is dry and intact, chest tubes are patent and the draining has subsided. Will continue to monitor.
[2019-04-21] MEDS: ondansetron/PF 4mg/2ml inj IV PRN (20:10)
[2019-04-21] MEDS: metoprolol succinate 25mg (24-HOUR) SR. Tablet PO SCH (20:12)
[2019-04-22] VITALS (23 sets, daily range): BP systolic 95–124; BP diastolic 44–96
[2019-04-22] MEDS: cefepime 2g/NS 100ml ADVANTAGE 100 ML IV SCH ×3 (00:58→17:56)
[2019-04-22] MEDS: HYDROcodone/acetaminophen 10/325mg tab PO PRN ×3 (01:03→14:59)
[2019-04-22] MEDS: acetylcysteine 200 MG/ml 4ml vial INH SCH ×2 (03:12→08:02)
[2019-04-22] MEDS: albuterol 2.5 MG/3 ML nebule IH SCH ×6 (03:12→22:50)
--- NOTE | 2019-04-22 06:00 | NUR ---
Patient in room CICU 2009. I have received report from Marlena ASHLEY and had the opportunity to ask questions and assume patient care.
[2019-04-22 06:13] LABS: BASOPHILS # (AUTO) 0.1 X10'3 (0-0.2); BASOPHILS % (AUTO) 0.9 % (0-1); EOSINOPHILS # (AUTO) 0.4 X10'3 (0-0.9); EOSINOPHILS % (AUTO) 3.7 % (0-6); HEMATOCRIT 32.1 % (42.0-52.0); HEMOGLOBIN 11.2 g/dl (14.0-17.9); LYMPHOCYTES % (AUTO) 8.9 % (21-51); MEAN CORPUSCULAR HEMOGLOBIN 31.8 PG (27.0-31.0); MEAN CORPUSCULAR HGB CONC 34.9 g/dL (33.0-36.5); MEAN CORPUSCULAR VOLUME 90.9 FL (78-98); MEAN PLATELET VOLUME 8.3 FL (7.4-10.4); MONOCYTES % (AUTO) 9.4 % (2-12); NEUTROPHILS # (AUTO) 8.5 X10'3 (1.8-7.7); NEUTROPHILS % (AUTO) 77.1 % (42-75); PLATELET COUNT 307 X10'3 (140-440); RED BLOOD COUNT 3.53 X10'6 (4.70-6.10); RED CELL DISTRIBUTION WIDTH 13.4 % (11.5-14.5); WHITE BLOOD COUNT 11.1 X10'3 (4.5-11.0)
[2019-04-22 06:29] LABS: ALANINE AMINOTRANSFERASE 16 U/L (12-78); ALBUMIN 1.5 G/DL (3.4-5.0); ALBUMIN/GLOBULIN RATIO 0.4 (1.1-1.5); ALKALINE PHOSPHATASE 65 IU/L (46-116); ANION GAP 6 (8-16); ASPARTATE AMINO TRANSFERASE 15 U/L (10-37); BILIRUBIN,TOTAL 0.7 MG/DL (0.1-1.0); BLOOD UREA NITROGEN 8 MG/DL (7-18); BUN/CREATININE RATIO 10.5 (5.4-32.0); CALCIUM 7.8 MG/DL (8.5-10.1); CHLORIDE 98 MMOL/L (99-107); CREATININE 0.76 MG/DL (0.60-1.10); GLUCOSE 101 MG/DL (70-104); MAGNESIUM 2.4 MG/DL (1.5-2.4); PHOSPHORUS 2.5 MG/DL (2.3-4.5); POTASSIUM 3.3 MMOL/L (3.5-5.1); SODIUM 132 MMOL/L (135-145); TOTAL CARBON DIOXIDE 28.2 MMOL/L (24-32); TOTAL PROTEIN 5.7 G/DL (6.4-8.2); eGFR > 90 ML/MIN
--- NOTE | 2019-04-22 06:47 | NUR ---
Problems reprioritized. Patient report given, questions answered & plan of care reviewed with Irene ASHLEY.
[2019-04-22] MEDS: lactose-reduced food (Ensure Enlive) - 237ml bottle PO SCH ×2 (07:30→12:30)
[2019-04-22] MEDS: lactobacillus rhamnosus 10,000 MMU CELLS/CAPSULE PO SCH ×2 (08:14→19:57)
[2019-04-22] MEDS: potassium Cl 20 mEq SR tablet PO PRN ×2 (08:14→14:53)
[2019-04-22] MEDS: magnesium oxide 400mg tablet PO SCH ×2 (08:14→19:57)
[2019-04-22] MEDS: docusate sod 100mg capsule PO SCH ×2 (08:14→19:57)
[2019-04-22] MEDS: amiodarone 200mg tablet PO SCH ×2 (08:15→19:57)
[2019-04-22] MEDS: enoxaparin 80mg/0.8ml syringe SUBCUT SCH (08:15)
[2019-04-22] MEDS: nicotine 21mg patch - 24 hr TD SCH (08:16)
[2019-04-22] MEDS: linezolid 600mg/300ml PREMIX 300 ML IV SCH (09:55)
[2019-04-22] MEDS ORDERED: lactose-reduced food (Ensure High Protein) 237ml bottle PO SCH (13:00)
--- NOTE | 2019-04-22 15:02 | NUR ---
F/U: Pt is doing slightly better per RN. However, having poor po intake and does not like the oral supplement;oral supplement was consumed 100% for the first two.Per MD agrees to liberalize the po diet to regular. Current diet order to regular. Continue Ensure as patient is consuming it. LBM 04/21. Will continue to monitor po intake. 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 PO intake pending documentation, spoke with bedside RN who reports patient PO Intake is about 25%. Met with patient and his daughter at bedside, patient reports just the other day he was eating everything but has declined d/t not preferring his meals. In view of patient's poor intake, age, and condition he may benefit from diet liberalization to regular. This was discussed with bedside RN, she states she will discuss with Hand Suture Winder. Patient is drinking Orgain protein drinks brought in from home, is interested in trying Ensure Enlive with breakfast and lunch to meet nutrition and protein needs s/p surgery, this was also discussed with bedside RN who added it to patient's meals. D/w Dietary regarding the Ensure. Patient is constipated, last BM 04/15, receiving colace BID starting yesterday, would also like prunes with lunch, d/w dietary. Pt and daughter given written low tyramine education handout with verbal review in view of patient receiving zyvox. Will continue to follow. Recommend: 1. Continue regular diet 2. Send Ensure Enlive with breakfast and dinner in view of suboptimal PO intake 3. Continue routine bowel care 4. weight per rx Addendum: 04/22/19 at [address] Amended: Links added. Addendum: 04/22/19 at [address] RD reviewed and agree with international trade specialist note
--- NOTE | 2019-04-22 18:00 | NUR ---
Problems reprioritized. Patient report given, questions answered & plan of care reviewed with Paula No.
[2019-04-22] MEDS: metoprolol succinate 25mg (24-HOUR) SR. Tablet PO SCH (19:57)
[2019-04-22] MEDS: apixaban 5mg tablet PO SCH (19:58)
[2019-04-23] VITALS (18 sets, daily range): BP systolic 106–138; BP diastolic 63–89
[2019-04-23] MEDS: cefepime 2g/NS 100ml ADVANTAGE 100 ML IV SCH ×2 (00:24→10:20)
[2019-04-23] MEDS: albuterol 2.5 MG/3 ML nebule IH SCH ×6 (03:05→23:16)
[2019-04-23 05:20] LABS: BASOPHILS # (AUTO) 0.1 X10'3 (0-0.2); BASOPHILS % (AUTO) 0.6 % (0-1); EOSINOPHILS # (AUTO) 0.3 X10'3 (0-0.9); EOSINOPHILS % (AUTO) 2.7 % (0-6); HEMATOCRIT 33.1 % (42.0-52.0); HEMOGLOBIN 11.4 g/dl (14.0-17.9); LYMPHOCYTES # (AUTO) 0.8 X10'3 (1.1-4.8); LYMPHOCYTES % (AUTO) 7.7 % (21-51); MEAN CORPUSCULAR HEMOGLOBIN 31.5 PG (27.0-31.0); MEAN CORPUSCULAR HGB CONC 34.4 g/dL (33.0-36.5); MEAN CORPUSCULAR VOLUME 91.6 FL (78-98); MEAN PLATELET VOLUME 8.2 FL (7.4-10.4); MONOCYTES # (AUTO) 0.9 X10'3 (0-0.9); MONOCYTES % (AUTO) 8.8 % (2-12); NEUTROPHILS # (AUTO) 7.9 X10'3 (1.8-7.7); NEUTROPHILS % (AUTO) 80.2 % (42-75); PLATELET COUNT 366 X10'3 (140-440); RED BLOOD COUNT 3.61 X10'6 (4.70-6.10); RED CELL DISTRIBUTION WIDTH 13.4 % (11.5-14.5); WHITE BLOOD COUNT 9.8 X10'3 (4.5-11.0)
[2019-04-23 05:31] LABS: ALANINE AMINOTRANSFERASE 22 U/L (12-78); ALBUMIN 1.6 G/DL (3.4-5.0); ALBUMIN/GLOBULIN RATIO 0.4 (1.1-1.5); ALKALINE PHOSPHATASE 64 IU/L (46-116); ANION GAP 5 (8-16); ASPARTATE AMINO TRANSFERASE 23 U/L (10-37); BILIRUBIN,TOTAL 0.7 MG/DL (0.1-1.0); BLOOD UREA NITROGEN 9 MG/DL (7-18); BUN/CREATININE RATIO 12.5 (5.4-32.0); CALCIUM 7.8 MG/DL (8.5-10.1); CHLORIDE 100 MMOL/L (99-107); CREATININE 0.72 MG/DL (0.60-1.10); GLUCOSE 104 MG/DL (70-104); MAGNESIUM 2.3 MG/DL (1.5-2.4); PHOSPHORUS 2.3 MG/DL (2.3-4.5); SODIUM 133 MMOL/L (135-145); TOTAL CARBON DIOXIDE 27.6 MMOL/L (24-32); TOTAL PROTEIN 5.9 G/DL (6.4-8.2); eGFR > 90 ML/MIN
--- NOTE | 2019-04-23 06:51 | NUR ---
Patient in room CICU 2009. I have received report from Mac RN and had the opportunity to ask questions and assume patient care.
[2019-04-23] MEDS: ondansetron/PF 4mg/2ml inj IV PRN (07:33)
[2019-04-23] MEDS ORDERED: diatr meglu/diatrizoate 30ml oral sol.-(3 dose) bottle PO SCH (09:00)
[2019-04-23] MEDS: lactose-reduced food (Ensure Enlive) - 237ml bottle PO SCH ×2 (10:00→13:28)
[2019-04-23] MEDS: lactobacillus rhamnosus 10,000 MMU CELLS/CAPSULE PO SCH ×2 (10:20→20:00)
[2019-04-23] MEDS: apixaban 5mg tablet PO SCH ×2 (10:20→20:00)
[2019-04-23] MEDS: docusate sod 100mg capsule PO SCH (10:20)
[2019-04-23] MEDS: nicotine 21mg patch - 24 hr TD SCH (10:21)
--- NOTE | 2019-04-23 13:38 | NUR ---
I have reviewed and agree with all medications administered and interventions performed by COAL CRUSHER OPERATOR Student Conner Siddiqui.
--- NOTE | 2019-04-23 16:49 | NUR ---
55Problems reprioritized. Patient report given, questions answered & plan of care reviewed with Abby ASHLEY. Pt transported via W/C to Room 344B with NC, CT, soares cath and PIV all intact and in stable condition. Pt's family followed with belongings. Chart to surgical credit front office developer.
--- NOTE | 2019-04-23 17:53 | NUR ---
PT DROPPED OF IN ROOM. I WAS NOT MADE AWARE THAT PT HAD BEEN TRANSFERRED TO THE FLOOR. I WAS UNAWARE THAT PT WAS IN ROOM UNTIL 1 HR AFTER HE HAD ARRIVED. VSS STABLE, CHEST TUBE IN PLACE. NOTIFIED CHARGE NURSE, WILL FILL OUT OCCURRENCE REPORT.
--- NOTE | 2019-04-23 18:30 | NUR ---
Patient in room [facility]. I have received report from THOMAS ASHLEY and had the opportunity to ask questions and assume patient care.
[2019-04-23] MEDS: magnesium hydroxide 30ml (MOM) UD suspension PO SCH ×2 (19:59→20:00)
[2019-04-23] MEDS: docusate sod 250mg capsule PO SCH (20:00)
[2019-04-23] MEDS: magnesium oxide 400mg tablet PO SCH (20:00)
[2019-04-23] MEDS: metoprolol succinate 25mg (24-HOUR) SR. Tablet PO SCH (20:01)
[2019-04-23] MEDS: amiodarone 200mg tablet PO SCH (20:02)
[2019-04-24] VITALS: BP 128/65
[2019-04-24] MEDS: albuterol 2.5 MG/3 ML nebule IH SCH ×6 (03:18→23:00)
[2019-04-24 05:34] LABS: BASOPHILS % (AUTO) 0.4 % (0-1); EOSINOPHILS # (AUTO) 0.2 X10'3 (0-0.9); EOSINOPHILS % (AUTO) 2.8 % (0-6); HEMATOCRIT 28.7 % (42.0-52.0); HEMOGLOBIN 9.9 g/dl (14.0-17.9); LYMPHOCYTES # (AUTO) 0.9 X10'3 (1.1-4.8); LYMPHOCYTES % (AUTO) 11.2 % (21-51); MEAN CORPUSCULAR HEMOGLOBIN 31.6 PG (27.0-31.0); MEAN CORPUSCULAR HGB CONC 34.4 g/dL (33.0-36.5); MEAN CORPUSCULAR VOLUME 91.8 FL (78-98); MEAN PLATELET VOLUME 7.3 FL (7.4-10.4); MONOCYTES # (AUTO) 0.9 X10'3 (0-0.9); MONOCYTES % (AUTO) 10.3 % (2-12); NEUTROPHILS # (AUTO) 6.3 X10'3 (1.8-7.7); NEUTROPHILS % (AUTO) 75.3 % (42-75); PLATELET COUNT 393 X10'3 (140-440); RED BLOOD COUNT 3.13 X10'6 (4.70-6.10); RED CELL DISTRIBUTION WIDTH 13.4 % (11.5-14.5); WHITE BLOOD COUNT 8.3 X10'3 (4.5-11.0)
[2019-04-24 06:06] LABS: ALANINE AMINOTRANSFERASE 78 U/L (12-78); ALBUMIN 1.5 G/DL (3.4-5.0); ALBUMIN/GLOBULIN RATIO 0.4 (1.1-1.5); ALKALINE PHOSPHATASE 81 IU/L (46-116); ANION GAP 7 (8-16); ASPARTATE AMINO TRANSFERASE 104 U/L (10-37); BILIRUBIN,TOTAL 0.4 MG/DL (0.1-1.0); BLOOD UREA NITROGEN 11 MG/DL (7-18); BUN/CREATININE RATIO 12.8 (5.4-32.0); CALCIUM 7.2 MG/DL (8.5-10.1); CHLORIDE 103 MMOL/L (99-107); CREATININE 0.86 MG/DL (0.60-1.10); GLUCOSE 105 MG/DL (70-104); MAGNESIUM 2.4 MG/DL (1.5-2.4); PHOSPHORUS 2.5 MG/DL (2.3-4.5); SODIUM 137 MMOL/L (135-145); TOTAL CARBON DIOXIDE 26.9 MMOL/L (24-32); TOTAL PROTEIN 5.2 G/DL (6.4-8.2); eGFR 86 ML/MIN
--- NOTE | 2019-04-24 06:30 | NUR ---
Problems reprioritized. Patient report given, questions answered & plan of care reviewed with SAI ASHLEY.
--- NOTE | 2019-04-24 06:41 | NUR ---
Patient in room [facility] 344. I have received report from Angelica Dominguez RN and had the opportunity to ask questions and assume patient care.
[2019-04-24] MEDS: lactose-reduced food (Ensure Enlive) - 237ml bottle PO SCH ×2 (07:30→12:30)
[2019-04-24] MEDS: apixaban 5mg tablet PO SCH ×2 (07:32→19:57)
[2019-04-24] MEDS: lactobacillus rhamnosus 10,000 MMU CELLS/CAPSULE PO SCH ×2 (07:32→19:56)
[2019-04-24] MEDS: magnesium oxide 400mg tablet PO SCH ×2 (07:32→19:57)
[2019-04-24] MEDS: docusate sod 250mg capsule PO SCH ×2 (07:32→19:58)
[2019-04-24] MEDS: nicotine 21mg patch - 24 hr TD SCH (07:33)
[2019-04-24] MEDS: amiodarone 200mg tablet PO SCH ×2 (07:33→19:56)
[2019-04-24 08:00] VITALS: BP 134/75
[2019-04-24] MEDS: magnesium hydroxide 30ml (MOM) UD suspension PO SCH ×2 (08:00→19:59)
[2019-04-24] MEDS: ondansetron/PF 4mg/2ml inj IV PRN (10:32)
[2019-04-24 11:00] VITALS: BP 118/64
[2019-04-24] MEDS ORDERED: proMETHazine 25mg tablet PO PRN (14:15)
[2019-04-24 18:00] VITALS: BP 126/87
--- NOTE | 2019-04-24 18:35 | NUR ---
Problems reprioritized. Patient report given, questions answered & plan of care reviewed with CRIS LYNCH RN.
--- NOTE | 2019-04-24 18:40 | NUR ---
Patient in room [facility] 344. I have received report from SAI ASHLEY and had the opportunity to ask questions and assume patient care.
[2019-04-24] MEDS: metoprolol succinate 25mg (24-HOUR) SR. Tablet PO SCH (19:57)
[2019-04-24] MEDS: HYDROcodone/acetaminophen 10/325mg tab PO PRN (19:58)
[2019-04-25] VITALS: BP 118/68
[2019-04-25] MEDS: albuterol 2.5 MG/3 ML nebule IH SCH ×6 (03:00→23:00)
[2019-04-25 05:16] LABS: BASOPHILS % (AUTO) 0.5 % (0-1); EOSINOPHILS # (AUTO) 0.2 X10'3 (0-0.9); EOSINOPHILS % (AUTO) 2.9 % (0-6); HEMATOCRIT 31.5 % (42.0-52.0); HEMOGLOBIN 10.7 g/dl (14.0-17.9); LYMPHOCYTES # (AUTO) 1.2 X10'3 (1.1-4.8); MEAN CORPUSCULAR HEMOGLOBIN 31.5 PG (27.0-31.0); MEAN CORPUSCULAR HGB CONC 34.1 g/dL (33.0-36.5); MEAN CORPUSCULAR VOLUME 92.4 FL (78-98); MEAN PLATELET VOLUME 6.9 FL (7.4-10.4); MONOCYTES # (AUTO) 0.9 X10'3 (0-0.9); MONOCYTES % (AUTO) 10.7 % (2-12); NEUTROPHILS # (AUTO) 5.7 X10'3 (1.8-7.7); NEUTROPHILS % (AUTO) 70.9 % (42-75); PLATELET COUNT 459 X10'3 (140-440); RED CELL DISTRIBUTION WIDTH 13.6 % (11.5-14.5); WHITE BLOOD COUNT 8.1 X10'3 (4.5-11.0)
[2019-04-25 05:45] LABS: ALANINE AMINOTRANSFERASE 150 U/L (12-78); ALBUMIN 1.7 G/DL (3.4-5.0); ALBUMIN/GLOBULIN RATIO 0.4 (1.1-1.5); ALKALINE PHOSPHATASE 88 IU/L (46-116); ANION GAP 6 (8-16); ASPARTATE AMINO TRANSFERASE 111 U/L (10-37); BILIRUBIN,TOTAL 0.3 MG/DL (0.1-1.0); BLOOD UREA NITROGEN 13 MG/DL (7-18); BUN/CREATININE RATIO 15.5 (5.4-32.0); CALCIUM 7.8 MG/DL (8.5-10.1); CHLORIDE 106 MMOL/L (99-107); CREATININE 0.84 MG/DL (0.60-1.10); GLUCOSE 104 MG/DL (70-104); MAGNESIUM 2.6 MG/DL (1.5-2.4); PHOSPHORUS 3.1 MG/DL (2.3-4.5); POTASSIUM 4.4 MMOL/L (3.5-5.1); SODIUM 141 MMOL/L (135-145); TOTAL PROTEIN 5.8 G/DL (6.4-8.2); eGFR 88 ML/MIN
--- NOTE | 2019-04-25 06:15 | NUR ---
Patient refused SVN tx @ this time. No Shortness of breath noted. Addendum: 04/25/19 at 0615 by Jacy Porter RT Amended: Links added.
--- NOTE | 2019-04-25 06:20 | NUR ---
Problems reprioritized. Patient report given, questions answered & plan of care reviewed with SAI ASHLEY.
--- NOTE | 2019-04-25 06:51 | NUR ---
Patient in room [facility] 344. I have received report from Angelica Dominguez RN and had the opportunity to ask questions and assume patient care.
[2019-04-25 06:56] VITALS: BP 146/75
[2019-04-25] MEDS: magnesium oxide 400mg tablet PO SCH ×2 (07:56→19:32)
[2019-04-25] MEDS: apixaban 5mg tablet PO SCH ×2 (07:56→19:32)
[2019-04-25] MEDS: lactobacillus rhamnosus 10,000 MMU CELLS/CAPSULE PO SCH ×2 (07:56→19:32)
[2019-04-25] MEDS: amiodarone 200mg tablet PO SCH ×2 (07:57→19:31)
[2019-04-25] MEDS: docusate sod 250mg capsule PO SCH ×2 (07:57→19:31)
[2019-04-25] MEDS: magnesium hydroxide 30ml (MOM) UD suspension PO SCH ×2 (07:58→19:32)
[2019-04-25] MEDS ORDERED: nicotine 14mg patch - 24hr TD SCH (08:00)
[2019-04-25] MEDS: lactose-reduced food (Ensure Enlive) - 237ml bottle PO SCH ×2 (08:07→09:07)
[2019-04-25] MEDS: HYDROcodone/acetaminophen 10/325mg tab PO PRN ×2 (09:30→19:18)
[2019-04-25 12:00] VITALS: BP 121/64
[2019-04-25] MEDS ORDERED: naphazoline/pheniramine eye 1 DROP BOTTLE EACHEYE PRN (12:15)
--- NOTE | 2019-04-25 15:24 | NUR ---
Reassessment: Pt PO 50-75% avg meals continues to fluctuate w/ ONS decent PO given age. LBM 04/24. Will continue to monitor for additional protein needs post-op. Recommend: 1. Continue regular diet 2. Send Ensure Enlive with breakfast and dinner in view of suboptimal PO intake 3. Continue routine bowel care 4. weight per rx Addendum: 04/25/19 at [address] Amended: Links added.
[2019-04-25 18:30] VITALS: BP 140/73
[2019-04-25] MEDS: metoprolol succinate 25mg (24-HOUR) SR. Tablet PO SCH (19:18)
[2019-04-26] VITALS: BP 131/75
[2019-04-26] MEDS: HYDROcodone/acetaminophen 10/325mg tab PO PRN ×4 (00:41→17:32)
[2019-04-26] MEDS: albuterol 2.5 MG/3 ML nebule IH SCH ×6 (03:00→23:00)
[2019-04-26 05:32] LABS: ALANINE AMINOTRANSFERASE 104 U/L (12-78); ALBUMIN 1.8 G/DL (3.4-5.0); ALBUMIN/GLOBULIN RATIO 0.4 (1.1-1.5); ALKALINE PHOSPHATASE 84 IU/L (46-116); ANION GAP 6 (8-16); ASPARTATE AMINO TRANSFERASE 36 U/L (10-37); BILIRUBIN,TOTAL 0.5 MG/DL (0.1-1.0); BLOOD UREA NITROGEN 14 MG/DL (7-18); BUN/CREATININE RATIO 16.5 (5.4-32.0); CALCIUM 7.8 MG/DL (8.5-10.1); CHLORIDE 105 MMOL/L (99-107); CREATININE 0.85 MG/DL (0.60-1.10); GLUCOSE 105 MG/DL (70-104); MAGNESIUM 2.2 MG/DL (1.5-2.4); PHOSPHORUS 2.9 MG/DL (2.3-4.5); POTASSIUM 4.7 MMOL/L (3.5-5.1); SODIUM 137 MMOL/L (135-145); TOTAL CARBON DIOXIDE 26.3 MMOL/L (24-32); TOTAL PROTEIN 5.9 G/DL (6.4-8.2); eGFR 87 ML/MIN
[2019-04-26 05:33] LABS: BASOPHILS % (AUTO) 0.2 % (0-1); EOSINOPHILS # (AUTO) 0.2 X10'3 (0-0.9); EOSINOPHILS % (AUTO) 0.8 % (0-6); HEMATOCRIT 32.2 % (42.0-52.0); HEMOGLOBIN 11.1 g/dl (14.0-17.9); LYMPHOCYTES # (AUTO) 1.2 X10'3 (1.1-4.8); LYMPHOCYTES % (AUTO) 6.2 % (21-51); MEAN CORPUSCULAR HEMOGLOBIN 31.4 PG (27.0-31.0); MEAN CORPUSCULAR HGB CONC 34.4 g/dL (33.0-36.5); MEAN CORPUSCULAR VOLUME 91.3 FL (78-98); MEAN PLATELET VOLUME 6.9 FL (7.4-10.4); MONOCYTES # (AUTO) 1.3 X10'3 (0-0.9); MONOCYTES % (AUTO) 6.3 % (2-12); NEUTROPHILS # (AUTO) 17.4 X10'3 (1.8-7.7); NEUTROPHILS % (AUTO) 86.5 % (42-75); PLATELET COUNT 568 X10'3 (140-440); RED BLOOD COUNT 3.52 X10'6 (4.70-6.10); RED CELL DISTRIBUTION WIDTH 13.6 % (11.5-14.5); WHITE BLOOD COUNT 20.1 X10'3 (4.5-11.0)
--- NOTE | 2019-04-26 06:34 | NUR ---
Patient in room [facility] 344. I have received report from Roberta and had the opportunity to ask questions and assume patient care. Addendum: 04/26/19 at 0635 by Rj RANGEL Amended: Links added.
--- NOTE | 2019-04-26 06:35 | NUR ---
Problems reprioritized. Patient report given, questions answered & plan of care reviewed with RUBINA. Addendum: 04/26/19 at 0635 by Shady Hong RN Amended: Links added.
--- NOTE | 2019-04-26 06:58 | NUR ---
Patient in room [facility] 344. I have received report from Baldemar ASHLEY and had the opportunity to ask questions and assume patient care.
[2019-04-26 07:09] VITALS: BP 123/70
[2019-04-26] MEDS: lactose-reduced food (Ensure Enlive) - 237ml bottle PO SCH ×2 (07:30→12:54)
[2019-04-26] MEDS: magnesium hydroxide 30ml (MOM) UD suspension PO SCH (08:00)
[2019-04-26] MEDS: docusate sod 250mg capsule PO SCH ×2 (08:00→19:47)
[2019-04-26] MEDS: amiodarone 200mg tablet PO SCH ×2 (08:31→19:50)
[2019-04-26] MEDS: lactobacillus rhamnosus 10,000 MMU CELLS/CAPSULE PO SCH ×2 (08:32→19:51)
[2019-04-26] MEDS: apixaban 5mg tablet PO SCH ×2 (08:33→19:51)
[2019-04-26] MEDS: magnesium oxide 400mg tablet PO SCH (08:34)
[2019-04-26] MEDS: nicotine 7mg patch - 24hr TD SCH (08:37)
--- NOTE | 2019-04-26 10:31 | NUR ---
Student Medication Administration: For this medication-pass time frame, all medication were reviewed, dispensed, administered and documented per hospital policy by Rj, practical nursing faculty.
--- NOTE | 2019-04-26 10:31 | NUR ---
Student documentation: I have reviewed and agree with all interventions, assessments performed and documented by Rj, clinical nursing assistant.
[2019-04-26 10:43] LABS: BASOPHILS # (AUTO) 0.2 X10'3 (0-0.2); EOSINOPHILS # (AUTO) 0.1 X10'3 (0-0.9); EOSINOPHILS % (AUTO) 0.6 % (0-6); HEMOGLOBIN 11.8 g/dl (14.0-17.9); MEAN PLATELET VOLUME 7.1 FL (7.4-10.4); RED BLOOD COUNT 3.79 X10'6 (4.70-6.10); WHITE BLOOD COUNT 18.5 X10'3 (4.5-11.0)
[2019-04-26 10:45] LABS: BASOPHILS % (AUTO) 0.9 % (0-1); HEMATOCRIT 34.7 % (42.0-52.0); LYMPHOCYTES % (AUTO) 5.5 % (21-51); MEAN CORPUSCULAR HEMOGLOBIN 31.1 PG (27.0-31.0); MEAN CORPUSCULAR HGB CONC 33.9 g/dL (33.0-36.5); MEAN CORPUSCULAR VOLUME 91.5 FL (78-98); MONOCYTES # (AUTO) 1.2 X10'3 (0-0.9); MONOCYTES % (AUTO) 6.6 % (2-12); NEUTROPHILS % (AUTO) 86.4 % (42-75); PLATELET COUNT 654 X10'3 (140-440); RED CELL DISTRIBUTION WIDTH 13.7 % (11.5-14.5)
[2019-04-26 11:15] VITALS: BP 104/59
--- NOTE | 2019-04-26 12:03 | NUR ---
Problems reprioritized. Patient report given, questions answered & plan of care reviewed with Deborah student nurse. Addendum: 04/26/19 at 1203 by Rj RANGEL Amended: Links added.
--- NOTE | 2019-04-26 12:10 | NUR ---
Patient in room [facility] 344. I have received report from Roberta ASHLEY & Rj student nurse and had the opportunity to ask questions and assume patient care.
--- NOTE | 2019-04-26 16:12 | NUR ---
reviewed certified nursing assistant charting
--- NOTE | 2019-04-26 17:31 | NUR ---
Left message for Dr Sidhu regarding if it is ok to DC patients Coffey Catheter. Addendum: 04/26/19 at 1731 by Roberta Huynh RN [phone]
[2019-04-26 18:30] VITALS: BP 112/69
--- NOTE | 2019-04-26 18:46 | NUR ---
Problems reprioritized. Patient report given, questions answered & plan of care reviewed with Baldemar ASHLEY.
[2019-04-26] MEDS: metoprolol succinate 25mg (24-HOUR) SR. Tablet PO SCH (19:50)
[2019-04-27] VITALS: BP 132/75
[2019-04-27] MEDS: albuterol 2.5 MG/3 ML nebule IH SCH ×6 (03:10→23:00)
[2019-04-27 04:59] LABS: BASOPHILS % (AUTO) 0.4 % (0-1); EOSINOPHILS # (AUTO) 0.2 X10'3 (0-0.9); EOSINOPHILS % (AUTO) 1.7 % (0-6); HEMATOCRIT 30.8 % (42.0-52.0); HEMOGLOBIN 10.7 g/dl (14.0-17.9); LYMPHOCYTES # (AUTO) 1.2 X10'3 (1.1-4.8); LYMPHOCYTES % (AUTO) 10.1 % (21-51); MEAN CORPUSCULAR HEMOGLOBIN 31.4 PG (27.0-31.0); MEAN CORPUSCULAR HGB CONC 34.6 g/dL (33.0-36.5); MEAN CORPUSCULAR VOLUME 90.8 FL (78-98); MEAN PLATELET VOLUME 7.1 FL (7.4-10.4); MONOCYTES # (AUTO) 1.1 X10'3 (0-0.9); MONOCYTES % (AUTO) 9.3 % (2-12); NEUTROPHILS # (AUTO) 9.6 X10'3 (1.8-7.7); NEUTROPHILS % (AUTO) 78.5 % (42-75); PLATELET COUNT 545 X10'3 (140-440); RED BLOOD COUNT 3.39 X10'6 (4.70-6.10); WHITE BLOOD COUNT 12.2 X10'3 (4.5-11.0)
[2019-04-27 05:16] LABS: ALANINE AMINOTRANSFERASE 65 U/L (12-78); ALBUMIN 1.7 G/DL (3.4-5.0); ALBUMIN/GLOBULIN RATIO 0.4 (1.1-1.5); ALKALINE PHOSPHATASE 77 IU/L (46-116); ANION GAP 9 (8-16); ASPARTATE AMINO TRANSFERASE 19 U/L (10-37); BILIRUBIN,TOTAL 0.5 MG/DL (0.1-1.0); BLOOD UREA NITROGEN 14 MG/DL (7-18); BUN/CREATININE RATIO 18.4 (5.4-32.0); CALCIUM 8.1 MG/DL (8.5-10.1); CHLORIDE 103 MMOL/L (99-107); CREATININE 0.76 MG/DL (0.60-1.10); GLUCOSE 105 MG/DL (70-104); MAGNESIUM 2.2 MG/DL (1.5-2.4); PHOSPHORUS 3.2 MG/DL (2.3-4.5); POTASSIUM 4.1 MMOL/L (3.5-5.1); SODIUM 136 MMOL/L (135-145); TOTAL PROTEIN 5.9 G/DL (6.4-8.2); eGFR > 90 ML/MIN
--- NOTE | 2019-04-27 06:30 | NUR ---
Patient in room [facility] 344. I have received report from Baldemar ASHLEY and had the opportunity to ask questions and assume patient care.
--- NOTE | 2019-04-27 06:47 | NUR ---
Problems reprioritized. Patient report given, questions answered & plan of care reviewed with ANGLE. Addendum: 04/27/19 at 0648 by Shady Hong RN Amended: Links added.
[2019-04-27 07:00] VITALS: BP 117/71
[2019-04-27] MEDS: docusate sod 250mg capsule PO SCH ×2 (07:48→19:51)
[2019-04-27] MEDS: apixaban 5mg tablet PO SCH (07:48)
[2019-04-27] MEDS: lactobacillus rhamnosus 10,000 MMU CELLS/CAPSULE PO SCH ×2 (07:48→19:51)
[2019-04-27] MEDS: amiodarone 200mg tablet PO SCH ×2 (07:49→19:52)
[2019-04-27] MEDS: nicotine 7mg patch - 24hr TD SCH (07:53)
[2019-04-27] MEDS: lactose-reduced food (Ensure Enlive) - 237ml bottle PO SCH ×2 (08:00→12:39)
[2019-04-27] MEDS: HYDROcodone/acetaminophen 10/325mg tab PO PRN ×2 (09:17→19:51)
[2019-04-27 11:00] VITALS: BP 101/63
--- NOTE | 2019-04-27 18:28 | NUR ---
Patient in room [facility] 344B. I have received report from GABI Bond and had the opportunity to ask questions and assume patient care.
--- NOTE | 2019-04-27 18:30 | NUR ---
Problems reprioritized. Patient report given, questions answered & plan of care reviewed with Inga ASHLEY.
[2019-04-27] MEDS: metoprolol succinate 25mg (24-HOUR) SR. Tablet PO SCH (19:52)
[2019-04-27] MEDS: apixaban 2.5mg tablet PO SCH (19:52)
[2019-04-27 20:00] VITALS: BP 123/60
[2019-04-28] VITALS: BP 109/59
[2019-04-28 04:09] LABS: BASOPHILS # (AUTO) 0.1 X10'3 (0-0.2); BASOPHILS % (AUTO) 0.5 % (0-1); EOSINOPHILS # (AUTO) 0.2 X10'3 (0-0.9); EOSINOPHILS % (AUTO) 1.9 % (0-6); HEMATOCRIT 30.1 % (42.0-52.0); HEMOGLOBIN 10.2 g/dl (14.0-17.9); LYMPHOCYTES # (AUTO) 1.1 X10'3 (1.1-4.8); LYMPHOCYTES % (AUTO) 11.9 % (21-51); MEAN CORPUSCULAR HEMOGLOBIN 31.6 PG (27.0-31.0); MEAN CORPUSCULAR HGB CONC 34.1 g/dL (33.0-36.5); MEAN CORPUSCULAR VOLUME 92.6 FL (78-98); MEAN PLATELET VOLUME 7.2 FL (7.4-10.4); MONOCYTES # (AUTO) 0.9 X10'3 (0-0.9); MONOCYTES % (AUTO) 9.3 % (2-12); NEUTROPHILS # (AUTO) 7.1 X10'3 (1.8-7.7); NEUTROPHILS % (AUTO) 76.4 % (42-75); PLATELET COUNT 537 X10'3 (140-440); RED BLOOD COUNT 3.24 X10'6 (4.70-6.10); RED CELL DISTRIBUTION WIDTH 13.7 % (11.5-14.5); WHITE BLOOD COUNT 9.3 X10'3 (4.5-11.0)
[2019-04-28 04:28] LABS: ALANINE AMINOTRANSFERASE 53 U/L (12-78); ALBUMIN 1.6 G/DL (3.4-5.0); ALBUMIN/GLOBULIN RATIO 0.4 (1.1-1.5); ALKALINE PHOSPHATASE 74 IU/L (46-116); ANION GAP 8 (8-16); ASPARTATE AMINO TRANSFERASE 14 U/L (10-37); BILIRUBIN,TOTAL 0.4 MG/DL (0.1-1.0); BLOOD UREA NITROGEN 15 MG/DL (7-18); BUN/CREATININE RATIO 17.9 (5.4-32.0); CHLORIDE 105 MMOL/L (99-107); CREATININE 0.84 MG/DL (0.60-1.10); GLUCOSE 101 MG/DL (70-104); MAGNESIUM 2.1 MG/DL (1.5-2.4); PHOSPHORUS 3.2 MG/DL (2.3-4.5); POTASSIUM 4.1 MMOL/L (3.5-5.1); SODIUM 139 MMOL/L (135-145); TOTAL CARBON DIOXIDE 25.9 MMOL/L (24-32); TOTAL PROTEIN 5.8 G/DL (6.4-8.2); eGFR 88 ML/MIN
--- NOTE | 2019-04-28 06:30 | NUR ---
Patient in room [facility] 344. I have received report from Inga ASHLEY and had the opportunity to ask questions and assume patient care.
[2019-04-28] MEDS: albuterol 2.5 MG/3 ML nebule IH SCH ×5 (07:00→23:10)
[2019-04-28 08:00] VITALS: BP 117/67
[2019-04-28] MEDS: docusate sod 250mg capsule PO SCH ×2 (08:00→21:09)
[2019-04-28] MEDS: lactose-reduced food (Ensure Enlive) - 237ml bottle PO SCH ×2 (08:07→12:30)
[2019-04-28] MEDS: apixaban 2.5mg tablet PO SCH ×2 (08:23→21:10)
[2019-04-28] MEDS: lactobacillus rhamnosus 10,000 MMU CELLS/CAPSULE PO SCH ×2 (08:23→21:09)
[2019-04-28] MEDS: amiodarone 200mg tablet PO SCH ×2 (08:24→21:09)
[2019-04-28] MEDS: HYDROcodone/acetaminophen 10/325mg tab PO PRN ×2 (08:26→19:20)
[2019-04-28] MEDS: nicotine 7mg patch - 24hr TD SCH (08:31)
[2019-04-28 12:00] VITALS: BP 128/89
[2019-04-28] MEDS: tamsulosin 0.4mg capsule PO SCH ×2 (14:01→21:09)
--- NOTE | 2019-04-28 18:39 | NUR ---
Problems reprioritized. Patient report given, questions answered & plan of care reviewed with Namita Boogie RN.
--- NOTE | 2019-04-28 18:48 | NUR ---
Patient in room [facility] 344. I have received report from GABI Bond and had the opportunity to ask questions and assume patient care. Addendum: 04/28/19 at 1848 by Nancy Menchaca RN Amended: Links added.
[2019-04-28] MEDS: metoprolol succinate 25mg (24-HOUR) SR. Tablet PO SCH (19:13)
[2019-04-28 20:00] VITALS: BP 121/89
[2019-04-29] VITALS: BP 120/87
[2019-04-29] MEDS: albuterol 2.5 MG/3 ML nebule IH SCH (03:00)
[2019-04-29 04:54] LABS: BASOPHILS % (AUTO) 0.7 % (0-1); EOSINOPHILS # (AUTO) 0.2 X10'3 (0-0.9); EOSINOPHILS % (AUTO) 2.6 % (0-6); LYMPHOCYTES # (AUTO) 1.2 X10'3 (1.1-4.8); LYMPHOCYTES % (AUTO) 15.2 % (21-51); MEAN CORPUSCULAR HEMOGLOBIN 31.6 PG (27.0-31.0); MEAN CORPUSCULAR HGB CONC 34.5 g/dL (33.0-36.5); MEAN CORPUSCULAR VOLUME 91.7 FL (78-98); MEAN PLATELET VOLUME 7.1 FL (7.4-10.4); MONOCYTES # (AUTO) 0.6 X10'3 (0-0.9); NEUTROPHILS # (AUTO) 5.6 X10'3 (1.8-7.7); NEUTROPHILS % (AUTO) 73.5 % (42-75); PLATELET COUNT 577 X10'3 (140-440); RED BLOOD COUNT 3.17 X10'6 (4.70-6.10); RED CELL DISTRIBUTION WIDTH 13.3 % (11.5-14.5); WHITE BLOOD COUNT 7.5 X10'3 (4.5-11.0)
[2019-04-29 05:16] LABS: ALANINE AMINOTRANSFERASE 39 U/L (12-78); ALBUMIN 1.7 G/DL (3.4-5.0); ALBUMIN/GLOBULIN RATIO 0.4 (1.1-1.5); ALKALINE PHOSPHATASE 72 IU/L (46-116); ANION GAP 7 (8-16); ASPARTATE AMINO TRANSFERASE 12 U/L (10-37); BILIRUBIN,TOTAL 0.4 MG/DL (0.1-1.0); BLOOD UREA NITROGEN 10 MG/DL (7-18); BUN/CREATININE RATIO 12.3 (5.4-32.0); CALCIUM 8.1 MG/DL (8.5-10.1); CHLORIDE 104 MMOL/L (99-107); CREATININE 0.81 MG/DL (0.60-1.10); GLUCOSE 101 MG/DL (70-104); MAGNESIUM 2.1 MG/DL (1.5-2.4); PHOSPHORUS 3.2 MG/DL (2.3-4.5); SODIUM 137 MMOL/L (135-145); TOTAL CARBON DIOXIDE 25.9 MMOL/L (24-32); TOTAL PROTEIN 5.8 G/DL (6.4-8.2); eGFR > 90 ML/MIN
--- NOTE | 2019-04-29 06:30 | NUR ---
Patient in room [facility] 344. I have received report from Namita Boogie RN and had the opportunity to ask questions and assume patient care.
--- NOTE | 2019-04-29 06:33 | NUR ---
Problems reprioritized. Patient report given, questions answered & plan of care reviewed with GABI Vallejo. Addendum: 04/29/19 at 0633 by Nancy Menchaca RN Amended: Links added.
[2019-04-29] MEDS: lactose-reduced food (Ensure Enlive) - 237ml bottle PO SCH (07:30)
[2019-04-29 07:35] VITALS: BP 125/79
[2019-04-29] MEDS: lactobacillus rhamnosus 10,000 MMU CELLS/CAPSULE PO SCH (09:42)
[2019-04-29] MEDS: apixaban 2.5mg tablet PO SCH (09:42)
[2019-04-29] MEDS: amiodarone 200mg tablet PO SCH (09:42)
[2019-04-29] MEDS: nicotine 7mg patch - 24hr TD SCH (09:43)
[2019-04-29] MEDS: docusate sod 250mg capsule PO SCH (09:43)
[2019-04-29] MEDS: HYDROcodone/acetaminophen 10/325mg tab PO PRN (09:51)
[2019-04-29 11:00] VITALS: BP 132/69
[2019-04-29] MEDS ORDERED: tamsulosin capsule PO (11:17)
[2019-04-29] MEDS ORDERED: AMIO200T61 PO (11:17)
[2019-04-29] MEDS ORDERED: FLO0.4C PO (11:17)
[2019-04-29] MEDS ORDERED: METO-395 PO (11:17)
[2019-04-29] MEDS ORDERED: APIX2.5T PO (11:17)
[2019-04-29] MEDS ORDERED: NICO-631 TD (11:17)
[2019-04-29] MEDS ORDERED: FLU VACC QS2019-20(6MOS UP)/PF 60 MCG/0.5 ML SYRINGE IMVAC ONE (11:35)
[2019-04-29] MEDS ORDERED: FLU VACC QS 2019-20 (6 MOS UP) 60 MCG/0.5 ML VIAL IMVAC ONE (12:00)
--- NOTE | 2019-04-29 15:08 | NUR ---
Student Medication Administration: Flu vaccine administered by Renetta GUTIÉRREZ per hospital policy
--- NOTE | 2019-04-29 16:00 | NUR ---
Patient discharged into the care of his family, Patient left in wheel chair with all belongings IV was taken out at discharge and showed intact canula and minimal bleeding. Patient is going to have in home health upon going home and with be with family. Patient notified to follow up with Dr. Eagle and showed understanding of discharge teaching
== END 2019-04-29 13:20 | disposition home health service (06) | DRG 163 ==
LOC: PAS IN 05:35 → EDSTATUS 07:30 → CICU 2S 13:03 → SUR 3N 04-23 16:40
PROVIDERS: ADMIT Surgery; ATTEND Family Medicine
PROC: 07B70ZZ Excision of Thorax Lymphatic, Open Approach (ICD-10-PCS; 2019-04-15)
PROC: 0B5P0ZZ Destruction of Left Pleura, Open Approach (ICD-10-PCS; 2019-04-15)
PROC: 0W9B00Z Drainage of Left Pleural Cavity with Drainage Device, Open Approach (ICD-10-PCS; 2019-04-15)
PROC: 0T9B80Z Drainage of Bladder with Drainage Device, Via Natural or Artificial Opening Endoscopic (ICD-10-PCS; 2019-04-15)
PROC: 0BTG0ZZ Resection of Left Upper Lung Lobe, Open Approach (ICD-10-PCS; principal; 2019-04-15 07:40)
PROC: 3E02340 Introduction of Influenza Vaccine into Muscle, Percutaneous Approach (ICD-10-PCS; 2019-04-29)
DX: C34.12 Malignant neoplasm of upper lobe, left bronchus or lung (principal); J96.01 Acute respiratory failure with hypoxia; I82.622 Acute embolism and thrombosis of deep veins of left upper extremity; J93.82 Other air leak; J93.9 Pneumothorax, unspecified; J98.11 Atelectasis; T79.7XXA Traumatic subcutaneous emphysema, initial encounter; D62 Acute posthemorrhagic anemia; R65.10 Systemic inflammatory response syndrome (SIRS) of non-infectious origin without acute organ dysfunction; E78.5 Hyperlipidemia, unspecified; F17.200 Nicotine dependence, unspecified, uncomplicated; D3A.8 Other benign neuroendocrine tumors; M54.9 Dorsalgia, unspecified; R00.0 Tachycardia, unspecified; I10 Essential (primary) hypertension; I48.91 Unspecified atrial fibrillation; N36.5 Urethral false passage; N40.0 Benign prostatic hyperplasia without lower urinary tract symptoms; Z79.01 Long term (current) use of anticoagulants; Z86.73 Personal history of transient ischemic attack (TIA), and cerebral infarction without residual deficits; Z23 Encounter for immunization
CPT/HCPCS: Z7506; Z7508; 36415; 36600; 71045; 80047; 80053; 81001; 81003; 82803; 82948; 83605; 83735; 84100; 84145; 85018; 85025; 85610; 85730; 86885; 86900; 86901; 87040; 87070; 87081; 87088; 93005; 93971; 94060; 94640; 94667; 94668; 94760; 97110; 97116; 97161; 97530; 97535; A4215; A4340; A4618; A6258; A6449; A7000; A7048; C1758; C1769; C9250; G0378; J0282; J0690; J0692; J1100; J1650; J1885; J1940; J2001; J2020; J2250; J2270; J2310; J2405; J2543; J2704; J2710; J3010; J3475; J3480; J3490; J7030; J7050; J7060; J7120; Q0169; Q2037